=== PATIENT | female | born 1995 | race Two or more races ===

== ENCOUNTER 2022-09-06 20:30 | Emergency (ER) | payer MEDICAID, OTHER ==
[~2022-09-06] VITALS: Ht 149.9 cm; Wt 96.1 kg
[2022-09-06 22:33] VITALS: BP 116/77
[2022-09-06] MEDS ORDERED: cefTRIAXone SOD 1,000 MG VL IM ONE (22:45)
[2022-09-06] MEDS ORDERED: CEPH500C PO (22:47)
== END 2022-09-06 23:04 | disposition home or self-care (01) ==
LOC: ER 20:30
DX: L03.114 Cellulitis of left upper limb (principal)
CPT/HCPCS: 96372; 99283; J0696